=== PATIENT | female | born 1985 | race Caucasian/White ===

== ENCOUNTER 2018-08-26 07:14 | Day surgery (SDC) | payer BC ==
[2018-08-21 11:04] LABS: HEMATOCRIT 41.8 % (36.0-47.0); HEMOGLOBIN 14.5 g/dL (12.0-15.5); MEAN CORPUSCULAR HGB CONC 34.8 g/dL (32.0-36.0); MEAN CORPUSCULAR VOLUME 92 fl (80-97); PLATELET COUNT 256 10^3/uL (150-450); RED BLOOD COUNT 4.55 10^6/uL (3.72-5.28); RED CELL DISTRIBUTION WIDTH 12.8 % (11.5-14.0); WHITE BLOOD COUNT 7.2 10^3/uL (4.0-10.5)
[2018-08-21 11:12] LABS: APPEARANCE,URINE SLIGHTLY-CLOUDY; BILIRUBIN,URINE NEGATIVE (NEGATIVE); COLOR,URINE YELLOW; GLUCOSE, URINE NEGATIVE (NEGATIVE); KETONES,URINE NEGATIVE (NEGATIVE); LEUKOCYTE ESTERASE,URINE NEGATIVE (NEGATIVE); NITRITE,URINE NEGATIVE (NEGATIVE); PROTEIN,URINE NEGATIVE (NEGATIVE); URINE SPECIFIC GRAVITY 1.026; UROBILINOGEN,URINE NEGATIVE mg/dL (<2.0)
[2018-08-21 11:35] LABS: ALANINE AMINOTRANSFERASE 9 U/L (9-52); ALBUMIN 4.7 g/dL (3.5-5.0); ALKALINE PHOSPHATASE 56 U/L (38-126); ANION GAP 10 (5-19); ASPARTATE AMINO TRANSFERASE 17 U/L (14-36); BILIRUBIN,DIRECT 0.2 mg/dL (0.0-0.4); BILIRUBIN,TOTAL 0.7 mg/dL (0.2-1.3); BLOOD UREA NITROGEN 11 mg/dL (7-20); CALCIUM 9.9 mg/dL (8.4-10.2); CARBON DIOXIDE 24 mmol/L (22-30); CHLORIDE 107 mmol/L (98-107); GLUCOSE 89 mg/dL (75-110); POTASSIUM 4.3 mmol/L (3.6-5.0); SODIUM 141.1 mmol/L (137-145); TOTAL PROTEIN 7.7 g/dL (6.3-8.2)
[~2018-08-26 07:14] MED LIST: ACETAMINOPHEN 1,000 MG/100 ML RTUPB IV ONE; FENTANYL CITRATE INJ/PF 100 MCG/2 ML AMPUL ONE; GENTAMICIN SULFATE 80 MG in DEXTROSE 5%-WATER 100 ML IV PRN; LACTATED RINGERS 1000 ML IV PRN; LIDOCAINE 0.5% INJ-PF (5 MG/ML) 50 ML SDV SUBCUT PRN; LIDOCAINE 2% INJ-PF (100 MG/5 ML) SYRINGE ONE; MIDAZOLAM 2 MG/2 ML INJ ONE; PROPOFOL INJ 200 MG/20 ML VIAL IV ONE
[2018-08-26] MEDS ORDERED: LIDOCAINE 1%/EPINEPHRINE INJ 20 ML VIAL ONE (09:09)
[2018-08-26] MEDS ORDERED: FENTANYL CITRATE INJ/PF 100 MCG/2 ML AMPUL IV PRN ×3 (09:32)
[2018-08-26] MEDS ORDERED: ONDANSETRON HCL INJ/PF 4 MG/2 ML SDV IV PRN (09:32)
[2018-08-26] MEDS ORDERED: DIPHENHYDRAMINE HCL 50 MG/ML VIAL IV PRN (09:32)
[2018-08-26] MEDS ORDERED: PROMETHAZINE HCL INJ 25 MG/1 ML VIAL IV PRN ×2 (09:32)
[2018-08-26] MEDS ORDERED: MEPERIDINE HCL/PF INJ 25 MG/1 ML DISP.SYRIN IV PRN (09:32)
[2018-08-26] MEDS ORDERED: MORPHINE SULFATE 10 MG/ML INJ IV PRN (09:32)
--- NOTE | 2018-08-26 10:40 | OPERATIVE REPORT E ---
Operative Report NAME: VERONICA DICKEY : 1985 AGE: 32Y DATE OF SURGERY: 08/26/2018 ROOM: PREOPERATIVE DIAGNOSIS: Redundant labia minora bilaterally and right labia minora cyst. POSTOPERATIVE DIAGNOSIS: Redundant labia minora bilaterally and right labia minora cyst. OPERATION: Pelvic under anesthesia and excision of right labial cyst as well as excision of redundant labia minora bilaterally. SURGEON: JANIYA BURDICK M.D. ANESTHESIA: General and 1% Xylocaine with epinephrine. ESTIMATED BLOOD LOSS: 10 to 15 mL. PERTINENT HISTORY AND OPERATIVE FINDINGS: This is a 32-year-old female who was noted to have redundant bilateral labia minora as well as a right labia minora cyst. After hearing the risks and benefits and various options, she opted to proceed with an in-hospital outpatient excision of bilateral redundant labia minora as well as excision of right labia minora cyst. At the time of surgery she did have redundant bilateral labia minora as well as a small 1 cm right posterior labia minora cyst. The vagina appeared to be normal. The cervix and uterus was normal. Uterus was anterior, normal size and shape. Adnexa were negative. OPERATIVE PROCEDURE: The patient was brought into the OR, placed on the table in a supine position. She was inducted under general anesthesia. She was then repositioned in dorsal lithotomy, prepped and draped in sterile fashion. The bladder was emptied of approximately 50 mL of clear yellow urine. A pelvic under anesthesia was performed with the redundant labia, right labial cyst, normal vagina, normal cervix, anterior normal sized uterus, and adnexa that palpated normal. Gloves were changed and then we did make markings across the redundant labia minora on both sides. Then, turning attention to the right labia, the shotted curved Nydia was placed across the redundant area and pressed down for pressure. It was then injected with 1% Xylocaine with epinephrine. The redundant tissue and the cyst were then sharply dissected out with the #15 blade. The curved Nydia shot was then released. There was minor oozing. We went ahead and secured the labia top and bottom and then we did a subcuticular using 3-0 Prolene. The Prolene slid easily. After we had finished this the Prolene was tied on both the upper and lower edges and the 0 chromic that were used for retention purposes was removed. The exact same procedure was then carried out on the other side, with the exception that there was no cyst to remove on the left side labia minora. We then inspected it. There was no evidence of active bleeding. This terminated the procedure. The patient had the anesthesia discontinued. She was placed back in the supine position and transferred to the recovery room in satisfactory condition. Once again, estimated blood loss was 15 to 20 mL. She tolerated the procedure well. DICTATING PHYSICIAN: JANIYA BURDICK M.D. [id number] PHY#: [id number] ID: [id number] JOB#: [id number] ACCT: [id number] cc:JANIYA BURDICK M.D. >
[2018-08-26 11:42] VITALS: BP 126/88
== END 2018-08-26 11:48 | disposition home or self-care (01) ==
LOC: OROUT 07:14
PROVIDERS: ATTEND Obstetrics & Gynecology
DX: N90.7 Vulvar cyst (principal)
CPT/HCPCS: 36415; 85027; 81025; 80053; 81001; 88305 ×2; 56620; J2250; J3010; J1580; J3490; J2001; J2704; J0131; 940; J7060

== ENCOUNTER 2019-12-14 17:11 | Outpatient (CLI) | payer BC ==
[2019-12-14 17:48] LABS: APPEARANCE,URINE CLEAR; BILIRUBIN,URINE NEGATIVE (NEGATIVE); COLOR,URINE COLORLESS; GLUCOSE, URINE NEGATIVE (NEGATIVE); KETONES,URINE 20 mg/dL (NEGATIVE); LEUKOCYTE ESTERASE,URINE NEGATIVE (NEGATIVE); NITRITE,URINE NEGATIVE (NEGATIVE); PROTEIN,URINE NEGATIVE (NEGATIVE); URINE SPECIFIC GRAVITY 1.001; UROBILINOGEN,URINE NEGATIVE mg/dL (<2.0)
[2019-12-14 18:13] LABS: URINE AMPHETAMINES SCREEN NEGATIVE; URINE BARBITURATES SCREEN NEGATIVE; URINE BENZODIAZEPINES SCREEN NEGATIVE; URINE COCAINE SCREEN NEGATIVE; URINE MARIJUANA (THC) SCREEN NEGATIVE; URINE METHADONE SCREEN NEGATIVE; URINE PHENCYCLIDINE SCREEN NEGATIVE
[2019-12-14 18:18] LABS: UR PRO/CREAT RATIO RESULT 0.9 mg/mg (0.0-0.2); URINE CREATININE 14.9 mg/dL (16-327); URINE PROTEIN 13.8 mg/dL (<12)
[2019-12-14 18:42] LABS: HEMATOCRIT 28.9 % (36.0-47.0); MEAN CORPUSCULAR HEMOGLOBIN 30.8 pg (27.0-33.4); MEAN CORPUSCULAR HGB CONC 34.5 g/dL (32.0-36.0); MEAN CORPUSCULAR VOLUME 89 fl (80-97); PLATELET COUNT 169 10^3/uL (150-450); RED BLOOD COUNT 3.24 10^6/uL (3.72-5.28); RED CELL DISTRIBUTION WIDTH 13.9 % (11.5-14.0); WHITE BLOOD COUNT 7.8 10^3/uL (4.0-10.5)
--- NOTE | 2019-12-14 18:48 | Non Stress Test Report ---
Non Stress Test Datetime Report Generated by CPN: 12/14/2019 18:48 VITAL SIGNS Temperature - NST: 98.0 Pulse - NST: 68 RESP - NST: 16 NBPSYS NST: 128 NBPDIA NST: 69 MONITORING Monitor Explained: Monitor Explained; Test Explained; Patient Verbalized Understanding Time on Monitor: 12/14/2019 17:24 Time off Monitor: 12/14/2019 18:16 NST Duration: 52 NST INTERVENTIONS NST Interventions: PO Hydration; Reposition Patient Physician Notified NST: Dr. Saman BABY A: [id number] BABY A Movement : Present Contraction Frequency : irregular FHR Baseline : 135 Accelerations : 15X15 Decelerations : None Variability : Moderate 6-25bpm NST Review: Meets Criteria for Reactive NST NST Review and Verified By : RobertNiebuhr,RN NST Results: Reactive NST REPORT Report Trigger: Send Report
[2019-12-14 18:57] LABS: ALBUMIN 3.3 g/dL (3.5-5.0); ALKALINE PHOSPHATASE 156 U/L (38-126); ANION GAP 6 (5-19); ASPARTATE AMINO TRANSFERASE 21 U/L (14-36); BILIRUBIN,TOTAL 0.5 mg/dL (0.2-1.3); BLOOD UREA NITROGEN 3 mg/dL (7-20); CALCIUM 8.8 mg/dL (8.4-10.2); CARBON DIOXIDE 22 mmol/L (22-30); CHLORIDE 109 mmol/L (98-107); GLUCOSE 77 mg/dL (75-110); POTASSIUM 3.7 mmol/L (3.6-5.0); TOTAL PROTEIN 6.1 g/dL (6.3-8.2); URIC ACID 5.3 mg/dL (2.5-6.2)
== END 2019-12-14 19:25 | disposition home or self-care (01) ==
LOC: LC 17:11
PROVIDERS: ATTEND Obstetrics & Gynecology
DX: O14.93 Unspecified pre-eclampsia, third trimester (principal); Z3A.36 36 weeks gestation of pregnancy
CPT/HCPCS: 36415; 59025; 80053; 80307; 81001; 82570; 83615; 84156; 84550; 85027; 87077; 87081

== ENCOUNTER 2019-12-17 16:56 | Outpatient (CLI) | payer BC ==
[2019-12-17] MEDS ORDERED: DEXTROSE 5%-WATER 1000 ML 1,000 ML IV PRN (17:59)
[2019-12-17 18:10] LABS: APPEARANCE,URINE SLIGHTLY-CLOUDY; BILIRUBIN,URINE NEGATIVE (NEGATIVE); COLOR,URINE YELLOW; GLUCOSE, URINE NEGATIVE (NEGATIVE); KETONES,URINE NEGATIVE (NEGATIVE); LEUKOCYTE ESTERASE,URINE NEGATIVE (NEGATIVE); NITRITE,URINE NEGATIVE (NEGATIVE); PROTEIN,URINE NEGATIVE (NEGATIVE); UROBILINOGEN,URINE NEGATIVE mg/dL (<2.0)
[2019-12-17 18:30] LABS: URINE AMPHETAMINES SCREEN NEGATIVE; URINE BARBITURATES SCREEN NEGATIVE; URINE BENZODIAZEPINES SCREEN NEGATIVE; URINE COCAINE SCREEN NEGATIVE; URINE MARIJUANA (THC) SCREEN NEGATIVE; URINE METHADONE SCREEN NEGATIVE; URINE PHENCYCLIDINE SCREEN NEGATIVE
[2019-12-17 18:31] LABS: 24 HOUR URINE PROTEIN RESULT 404 mg/day (42-225); URINE PROTEIN 15.8 mg/dL (<12)
[2019-12-17 19:43] LABS: ABSOLUTE EOSINOPHILS # (AUTO) 0.2 10^3/uL (0.0-0.6); ABSOLUTE LYMPHOCYTES (AUTO) 1.6 10^3/uL (0.5-4.7); ABSOLUTE MONOCYTES (AUTO) 0.5 10^3/uL (0.1-1.4); ABSOLUTE NEUT (AUTO) 5.6 10^3/uL (1.7-8.2); BASOPHILS % (AUTO) 0.5 % (0-2); EOSINOPHILS % (AUTO) 2.2 % (0-6); HEMATOCRIT 28.1 % (36.0-47.0); HEMOGLOBIN 9.5 g/dL (12.0-15.5); LYMPHOCYTES % (AUTO) 20.2 % (13-45); MEAN CORPUSCULAR HEMOGLOBIN 30.2 pg (27.0-33.4); MEAN CORPUSCULAR HGB CONC 33.9 g/dL (32.0-36.0); MEAN CORPUSCULAR VOLUME 89 fl (80-97); MONOCYTES % (AUTO) 6.7 % (3-13); PLATELET COUNT 170 10^3/uL (150-450); RED BLOOD COUNT 3.16 10^6/uL (3.72-5.28); RED CELL DISTRIBUTION WIDTH 13.9 % (11.5-14.0); SEGMENTED NEUTROPHILS % (AUTO) 70.4 % (42-78); TOTAL CELLS COUNTED % (AUTO) 100 %
[2019-12-17 19:59] LABS: ALBUMIN 3.3 g/dL (3.5-5.0); ALKALINE PHOSPHATASE 141 U/L (38-126); ANION GAP 6 (5-19); ASPARTATE AMINO TRANSFERASE 18 U/L (14-36); BILIRUBIN,TOTAL 0.3 mg/dL (0.2-1.3); BLOOD UREA NITROGEN 5 mg/dL (7-20); CALCIUM 8.6 mg/dL (8.4-10.2); CARBON DIOXIDE 23 mmol/L (22-30); CHLORIDE 108 mmol/L (98-107); GLUCOSE 76 mg/dL (75-110); POTASSIUM 3.7 mmol/L (3.6-5.0); URIC ACID 5.5 mg/dL (2.5-6.2)
[2019-12-17] MEDS ORDERED: NIFEDIPINE 10 MG CAPSULE ONE (20:55)
[2019-12-17] MEDS ORDERED: NIFEDIPINE 10 MG CAPSULE PO ONE (20:56)
--- NOTE | 2019-12-17 22:30 | Non Stress Test Report ---
Non Stress Test Datetime Report Generated by CPN: 12/17/2019 22:29 DEMOGRAPHIC EGA NST: 36.6 INDICATION Indication for Study (NST) Other: PIH work up MONITORING Monitor Explained: Monitor Explained; Test Explained; Patient Verbalized Understanding Time on Monitor: 12/17/2019 17:58 Time off Monitor: 12/17/2019 19:39 NST Duration: 101 NST INTERVENTIONS NST Interventions: PO Hydration; Reposition Patient Physician Notified NST: Dr. Roper on unit, reviewed fht BABY A: [id number] BABY A Movement : Present Contraction Frequency : irregular FHR Baseline : 135 Accelerations : 15X15 Decelerations : None Variability : Moderate 6-25bpm NST Review: Meets Criteria for Reactive NST NST Review and Verified By : Wei Larson RN NST Results: Reactive NST REPORT Report Trigger: Send Report
== END 2019-12-17 22:26 | disposition home or self-care (01) ==
LOC: LC 16:56
PROVIDERS: ATTEND Obstetrics & Gynecology Gynecology
DX: O14.93 Unspecified pre-eclampsia, third trimester (principal); Z3A.36 36 weeks gestation of pregnancy
CPT/HCPCS: 36415; 83615; 84156; 84550; 85025; 80053; 81001; 80307; 59025; J3490

== ENCOUNTER 2019-12-20 17:48 | Inpatient (IN) | payer BC, MEDICAID ==
[2019-12-20] MEDS ORDERED: DINOPROSTONE 10 MG VAGINAL INSERT.SR PV PRN (17:57)
[2019-12-20] MEDS ORDERED: RINGERS SOLUTION,LACTATED 1,000 ML IV ONE (17:57)
[2019-12-20] MEDS ORDERED: OXYTOCIN 10 UNIT/ML VIAL ONE (18:32)
[2019-12-20] MEDS ORDERED: MISOPROSTOL 0.2 MG TABLET ONE (18:32)
[2019-12-20] MEDS ORDERED: DINOPROSTONE 10 MG VAGINAL INSERT.SR ONE (18:33)
[2019-12-20] MEDS ORDERED: OXYTOCIN/0.9 % SODIUM CHLORIDE 30 UNIT/500 ML RTUINJ ONE (18:33)
[2019-12-20] MEDS ORDERED: LIDOCAINE 1% INJ-PF (10 MG/ML) 30 ML SDV ONE (18:33)
[2019-12-20 19:25] LABS: ABSOLUTE EOSINOPHILS # (AUTO) 0.1 10^3/uL (0.0-0.6); ABSOLUTE LYMPHOCYTES (AUTO) 1.7 10^3/uL (0.5-4.7); ABSOLUTE MONOCYTES (AUTO) 0.6 10^3/uL (0.1-1.4); ABSOLUTE NEUT (AUTO) 5.8 10^3/uL (1.7-8.2); BASOPHILS % (AUTO) 0.3 % (0-2); EOSINOPHILS % (AUTO) 1.5 % (0-6); HEMATOCRIT 28.9 % (36.0-47.0); HEMOGLOBIN 9.8 g/dL (12.0-15.5); LYMPHOCYTES % (AUTO) 20.4 % (13-45); MEAN CORPUSCULAR HEMOGLOBIN 29.7 pg (27.0-33.4); MEAN CORPUSCULAR HGB CONC 33.9 g/dL (32.0-36.0); MEAN CORPUSCULAR VOLUME 88 fl (80-97); MONOCYTES % (AUTO) 7.5 % (3-13); PLATELET COUNT 193 10^3/uL (150-450); SEGMENTED NEUTROPHILS % (AUTO) 70.3 % (42-78); TOTAL CELLS COUNTED % (AUTO) 100 %; WHITE BLOOD COUNT 8.2 10^3/uL (4.0-10.5)
[2019-12-20 19:32] LABS: APPEARANCE,URINE CLOUDY; BILIRUBIN,URINE NEGATIVE (NEGATIVE); COLOR,URINE YELLOW; GLUCOSE, URINE NEGATIVE (NEGATIVE); KETONES,URINE NEGATIVE (NEGATIVE); LEUKOCYTE ESTERASE,URINE MODERATE (NEGATIVE); NITRITE,URINE NEGATIVE (NEGATIVE); PROTEIN,URINE 30 mg/dL (NEGATIVE); URINE SPECIFIC GRAVITY 1.009
[2019-12-20 19:44] LABS: ALBUMIN 3.1 g/dL (3.5-5.0); ALKALINE PHOSPHATASE 158 U/L (38-126); ANION GAP 7 (5-19); ASPARTATE AMINO TRANSFERASE 19 U/L (14-36); BILIRUBIN,TOTAL 0.6 mg/dL (0.2-1.3); BLOOD UREA NITROGEN 3 mg/dL (7-20); CALCIUM 8.6 mg/dL (8.4-10.2); CARBON DIOXIDE 21 mmol/L (22-30); CHLORIDE 107 mmol/L (98-107); GLUCOSE 76 mg/dL (75-110); POTASSIUM 3.7 mmol/L (3.6-5.0); TOTAL PROTEIN 5.9 g/dL (6.3-8.2); URIC ACID 5.8 mg/dL (2.5-6.2)
[2019-12-20] MEDS ORDERED: MAGNESIUM HYDROXIDE SUSP 30 ML UDCUP PO ONE (19:50)
[2019-12-20] MEDS ORDERED: MAG HYDROX/AL HYDROX/SIMETH SUSP 30 ML UDCUP ONE (19:52)
[2019-12-20 19:55] LABS: URINE AMPHETAMINES SCREEN NEGATIVE; URINE BARBITURATES SCREEN NEGATIVE; URINE BENZODIAZEPINES SCREEN NEGATIVE; URINE COCAINE SCREEN NEGATIVE; URINE MARIJUANA (THC) SCREEN NEGATIVE; URINE METHADONE SCREEN NEGATIVE; URINE PHENCYCLIDINE SCREEN NEGATIVE
[2019-12-20] MEDS ORDERED: MAG HYDROX/AL HYDROX/SIMETH SUSP 30 ML UDCUP PO ONE (20:30)
--- NOTE | 2019-12-21 00:29 | Admission Physical ---
Datetime Report Generated by CPN: 12/21/2019 00:28 CURRENT ADMISSION Chief Complaint: Scheduled Induction of Labor Indication for Induction: PreEclampsia Admit Impression : Term, Intrauterine ; Induction of Labor Admit Plan: Admit to Unit; Initiate Labor Induction Protocol ALLERGIES Medication Allergies: Yes Medication Allergies: Penicillins (12/20/2019); prednisone/Psychosis (12/17/2019); clindamycin/SV/cant breath (12/17/2019); amoxicillin/IL/rash (12/17/2019) Latex: No Latex Allergies Food Allergies: none Environmental Allergies: none OBSTETRICAL HISTORY EDC: 01/08/2020 00:00 : 3 Para: 2 Term: 2 : 0 SAB: 0 IAB: 0 Ectopic: 0 Livin Cesareans: 0 VBACs: 0 Multiple Births: 0 Gestational Diabetes: No Rh Sensitization: No Incompetent Cervix: No DANO: No Infertility: No ART Treatment: No Uterine Anomaly: No IUGR: No Hx Previous C/S: No Macrosomia: No Hx Loss/Stillborn: No PIH: No Hx : No Placenta Previa/Abruption: No Depression/PP Depression: No PTL/PROM: No Post Hemorrhage: No Obstetrical History Comments: 2007 G2- 2009 G3- current SEE RECORDS Alcohol: No Marijuana : No Cocaine: No Other Illicit Drugs: No Cigarettes: Former Smoker. 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 Surgery: No Heart Disease: No Hosp/Surgery: No Autoimmune Disorder: No Anesthetic Complications: No Kidney Disease: No Abnormal Pap Smear: No Neuro/Epilepsy: No Psychiatric Disorders: No Other Medical Diseases: No Hepatitis/Liver Disease: No Significant Family History: No Varicosities/Phlebitis: No Trauma/Violence : No Thyroid Dysfunction: No INFECTIOUS HISTORY Gonorrhea: No Genital Herpes: No Chlamydia: No Tuberculosis: No Syphilis: No Hepatitis: No HIV/AIDS Exposure: No Rash or Viral Illness: No HPV: No PHYSICAL EXAM General: Normal HEENT: Normal Neurologic: Normal Thyroid: Normal Heart: Normal Lungs: Normal Breast: Normal Back: Normal Abdomen: Normal Genitourinary Exam: Normal Extremities: Normal DTRs: Normal Pelvic Type: Adequate Vital Signs: Reviewed; Within Normal Limits VAGINAL EXAM Dilatation: 0 Effacement: 0 Station: -3 MEMBRANES Pooling: Negative Membranes: Intact FETUS A EGA: 37.3 Monitoring: External US FHR- Baseline: 150 Variability: Moderate 6-25bpm Accelerations: 15X15 Decelerations: None FHR Category: Category I Estimated Weight (gm): 3400 Presentation: Vertex PLANS FOR LABOR AND DELIVERY Labor and Delivery: None Pain Management: Epidural Feeding Preference: Breast Benefit of Breast Feed Discussed: Yes Circumcision: N/A INFORMED CONSENT Signature: with User ID: [email or web address]
[2019-12-21] MEDS ORDERED: OXYTOCIN/0.9 % SODIUM CHLORIDE 30 UNIT/500 ML RTUINJ IV PRN (09:00)
--- NOTE | 2019-12-21 09:11 | L&D Progress Notes ---
PROGRESS NOTES Datetime Report Generated by CPN: 12/21/2019 09:10 PROGRESS NOTE Impression: Reassuring Heart Rate Procedures: Sterile Vag Exam Plan: Induction Plan Other: +GBS, Vancomycin. Start Pitocin Vital Signs : Reviewed Comment: G 3 P2 here overnight for IOL due to Pre-eclampsia. s/p Cervidil. Pt doing well, denies headache. +GBS w/ PCN allergy, will start Vancomycin. VE loose /-2, vtx. Will start Pitcoin. Pt plans an epidural when in active labor. Attending MD is Dr Cowan today VAGINAL EXAM Dilatation: 0 Effacement: 0 Station: -3 LAST VAGINAL EXAM-NURSING Nursing Exam Dilitation: 1.0 Nursing Exam Effacement: 50 Nursing Exam Station: -2 Nursing Exam Contractions: Patient reports not feeling contractions. MEMBRANES Pooling: Negative Membranes: Intact FETUS A FHR - Baseline: 140 Monitoring: External US Variability: Moderate 6-25bpm Accelerations: 15X15 Decelerations: None : 37.3 Estimated Weight (gm): 3400 Presentation: Vertex SIGNATURE SIGNATURE: [id number];14,[id number];13,[id number] Assignment: Beena Cowan MD Signature: with User ID: [email or web address] : with User ID: [email or web address]
[2019-12-21] MEDS: RINGERS SOLUTION,LACTATED 1,000 ML IV PRN ×2 (09:13→11:46)
[2019-12-21] MEDS: VANCOMYCIN HCL 1,000 MG in DEXTROSE 5%-WATER 250 ML IV SCH (10:11)
[2019-12-21] MEDS ORDERED: DIPHENHYDRAMINE HCL 50 MG/ML VIAL IV ONE (11:38)
[2019-12-21] MEDS ORDERED: DIPHENHYDRAMINE HCL 50 MG/ML VIAL ONE (11:39)
[2019-12-21 15:40] LABS: HEMATOCRIT 27.9 % (36.0-47.0); HEMOGLOBIN 9.6 g/dL (12.0-15.5); MEAN CORPUSCULAR HEMOGLOBIN 30.3 pg (27.0-33.4); MEAN CORPUSCULAR HGB CONC 34.4 g/dL (32.0-36.0); MEAN CORPUSCULAR VOLUME 88 fl (80-97); PLATELET COUNT 177 10^3/uL (150-450); RED BLOOD COUNT 3.17 10^6/uL (3.72-5.28); WHITE BLOOD COUNT 9.2 10^3/uL (4.0-10.5)
[2019-12-21] MEDS ORDERED: DINOPROSTONE 10 MG VAGINAL INSERT.SR PV PRN (19:00)
[2019-12-21] MEDS ORDERED: DINOPROSTONE 10 MG VAGINAL INSERT.SR ONE (19:10)
[2019-12-22] MEDS ORDERED: MISOPROSTOL 0.1 MG TABLET ONE (08:54)
[2019-12-22] MEDS ORDERED: MISOPROSTOL 0.1 MG TABLET PV ONE (09:03)
[2019-12-22] MEDS ORDERED: OXYTOCIN/0.9 % SODIUM CHLORIDE 30 UNIT/500 ML RTUINJ IV PRN (13:25)
[2019-12-22] MEDS: RINGERS SOLUTION,LACTATED 1,000 ML IV PRN (13:29)
[2019-12-22] MEDS: VANCOMYCIN HCL 1,000 MG in DEXTROSE 5%-WATER 250 ML IV SCH (13:36)
[2019-12-22] MEDS ORDERED: EPHEDRINE SULFATE INJ 50 MG/1 ML AMPULE ONE ×2 (14:59→21:36)
[2019-12-22] MEDS ORDERED: ROPIVACAINE HCL 0.2% INJ/PF (2 MG/ML) 20 ML SDV ONE ×2 (15:00→21:37)
[2019-12-22] MEDS ORDERED: FENTANYL/BUPIVACAINE/NS/PF 0 MCG/0 ML RTUINJ EPI ONE (15:00)
[2019-12-22] MEDS ORDERED: FENTANYL/BUPIVACAINE/NS/PF 300 MCG/150 ML RTUINJ EPI ONE (21:36)
[2019-12-22] MEDS ORDERED: MAG HYDROX/AL HYDROX/SIMETH SUSP 30 ML UDCUP ONE (22:05)
[2019-12-22] MEDS ORDERED: LABETALOL HCL 200 MG TABLET ONE (23:41)
[2019-12-23] MEDS ORDERED: BENZOCAINE/MENTHOL AEROSOL SPRAY 56 ML TOP PRN (00:14)
[2019-12-23] MEDS ORDERED: GLYCERIN/WITCH HAZEL LEAF 1 EACH MED..WIPE TP PRN (00:14)
[2019-12-23] MEDS ORDERED: NA PHOS,M-B/NA PHOS,DI-BA (ADULT) 133 ML ENEMA PR PRN (00:14)
[2019-12-23] MEDS ORDERED: OXYTOCIN/0.9 % SODIUM CHLORIDE 30 UNIT/500 ML RTUINJ IV PRN (00:14)
[2019-12-23] MEDS ORDERED: PROMETHAZINE HCL INJ 25 MG/1 ML VIAL IV PRN (00:14)
[2019-12-23] MEDS ORDERED: ACETAMINOPHEN WITH CODEINE #3 TABLET PO PRN ×2 (00:14)
[2019-12-23] MEDS ORDERED: ZOLPIDEM TARTRATE 5 MG TABLET PO PRN (00:14)
[2019-12-23] MEDS ORDERED: DIPH/PERTUSS(ACELL)/TETANUS VAC/PF 0.5 ML SYR (>=10YO) IM PRN (00:14)
[2019-12-23] MEDS ORDERED: MAGNESIUM HYDROXIDE SUSP 30 ML UDCUP PO PRN (00:14)
[2019-12-23] MEDS ORDERED: PROMETHAZINE HCL 25 MG TABLET PO PRN (00:14)
[2019-12-23] MEDS ORDERED: PROMETHAZINE HCL 25 MG SUPP.RECT PR PRN (00:14)
[2019-12-23] MEDS ORDERED: PSEUDOEPHEDRINE HCL 30 MG TABLET PO PRN (00:14)
[2019-12-23] MEDS ORDERED: MEASLES,MUMPS&RUBELLA VACC/PF 0.5 ML VIAL SUBCUT PRN (00:14)
[2019-12-23] MEDS ORDERED: DIPHENHYDRAMINE HCL 25 MG CAPSULE PO PRN (00:14)
[2019-12-23] MEDS ORDERED: DIBUCAINE 1% OINTMENT 28 GM TP PRN (00:14)
[2019-12-23] MEDS ORDERED: ACETAMINOPHEN 650 MG SUPP.RECT PR PRN (00:14)
[2019-12-23] MEDS: LABETALOL HCL 200 MG TABLET PO SCH ×3 (00:49→21:47)
--- NOTE | 2019-12-23 01:56 | Delivery Summary ---
Del Sum A-C Datetime Report Generated by CPN: 12/23/2019 01:56 DELIVERY PERSONNEL DELIVERY PERSONNEL: [id number] Delivery Doctor:: Payal Lopez MD Labor and Delivery Nurse:: Patricia Larson RNall source intelligence Nurse:: Katharine Veronica RN Nursery Nurse:: Kristal Blake RN Physical Education Specialist/MOTORCYCLE SUBASSEMBLY REPAIRER: Amanda Marquez, SENIOR BUSINESS DEVELOPMENT MANAGER MATERNAL INFORMATION Delivery Anesthesia: Epidural Medications After Delivery: Pitocin 30 Units in 500ml NS/D5W Estimated Blood Loss (ml): 200 Delivery QBL: 200 Maternal Complications: None Provider Comments: Called to patients room as she was completely dilated with urge to push. Pushed through a few contractions and a viable female infant was delivered over an intact perineum. Baby vigorously crying. Cord clamping delayed 30 seconds. COrd then doubly clamped and cut. placed skin to skin with Mother. BOth and Mother stable. Uterus firm LABOR SUMMARY EDC: 01/08/2020 00:00 No. Babies in Womb: 1 Attempted: No Labor Anesthesia: Epidural LABOR INFORMATION Reason for Induction: Pre-Eclampsia Onset of Labor: 12/22/2019 22:46 Complete Dilatation: 12/22/2019 23:46 Cervical Ripening Agents: Cytotec @ 25 mcg given PV per John NEAL orders Oxytocin: Induction Group B Beta Strep: Positive Antibiotics # of Doses: 2 Antibiotics Time of Last Dose: 12/22/2019 13:36 Name of Antibiotic Given: Vancomycin Steroids Given: None Reason Steroids Not Administered: Not Applicable MEMBRANES Membranes Rupture Method: Artificial Rupture of Membranes: 12/22/2019 20:47 Length of Rupture (hr): 2.17 Amniotic Fluid Color: Clear Amniotic Fluid Amount: Small Amniotic Fluid Odor: Normal STAGES OF LABOR Stage 1 hr: 1 Stage 1 min: 0 Stage 2 hr: 0 Stage 2 min: -49 Stage 3 hr: 1 Stage 3 min: 3 Total Time in Labor hr: 1 Total Time in Labor min: 14 VAGINAL DELIVERY Episiotomy: None Laceration #1: None Laceration Extension #1: N/A Laceration Repair: Not Applicable Sponge Count Correct: Yes Sharps Count Correct: Yes CSECTION DELIVERY Primary Indication: N/A Secondary Indication: N/A CSection Incidence: N/A Labor: N/A Elective: N/A CSection Incision: N/A BABY A INFORMATION Infant Delivery Date/Time: 12/22/2019 22:57 Method of Delivery: Vaginal Nurse Controlled Delivery: No Born in Route : No : N/A Forceps: N/A Vacuum Extraction: N/A Shoulder Dystocia : No PRESENTATION/POSITION BABY A Presentation: Cephalic Cephalic Presentation: Vertex Vertex Position: Left Occipital Anterior Breech Presentation: N/A PLACENTA INFORMATION BABY A Placenta Delivery Time : 12/23/2019 00:00 Placenta Method of Delivery: Spontaneous Placenta Status: Delivered SCORES BABY A Heart Rate 1 min: >100 bpm Resp Effort 1 min: Good Cry Reflex Irritability 1 min: Cough or Sneeze or Pulls Away Muscle Tone 1 min: Active Motion Color 1 min: Blue/Pale Resuscitation Effort 1 min: Tactile Stimulation SCORE 1 MIN: 8 Heart Rate 5 min: >100 bpm Resp Effort 5 min: Good Cry Reflex Irritability 5 min: Cough or Sneeze or Pulls Away Muscle Tone 5 min: Active Motion Color 5 min: Body Byers, Extremities Blue Resuscitation Effort 5 min: Tactile Stimulation SCORE 5 MIN: 9 INFORMATION BABY A Gestational Age at Delivery: 37.4 Gestational Status: Early Term- 37- 38.6 Weeks Infant Outcome : Liveborn Infant Condition : Stable Infant Sex: Female IDENTIFICATION BABY A Verification Date/Time: 12/23/2019 00:27 ID Band Number: [id number] Mother's Name Verified: Yes RN Verifying Infant: E. Marsha RN. K. Jeremías RN WEIGHT/LENGTH BABY A Infant Birthweight (gm): 3798 Infant Weight (lb): 8 Weight (oz): 6 Length (in): 20.00 Infant Length (cm): 50.80 CORD INFORMATION BABY A No. Cord Vessels: 3 Nuchal Cord : N/A Cord Blood Taken: Yes-For Eval (Mom's Blood Type - or O+) Infant Suction: Mouth; Nose ASSESSMENT BABY A Infant Complications: None Physical Findings at Delivery: Within Normal Limits Respirations: Appears Normal Skin to Skin: Yes Project Architect/ALS Called : No Transferred To: Remains with Mother BABY B INFORMATION : N/A SIGNATURES Signature: with User ID: [email or web address] : with User ID: [email or web address]
--- NOTE | 2019-12-23 01:56 | Birth Certificate Data ---
Cert Data Datetime Report Generated by CPN: 12/23/2019 01:56 CERTIFICATE DATA 47a. Care: Yes (12/14/2019 18:26:Katharine Veronica RN) 47b. Date of First Visit: 07/15/2019 00:00 (12/14/2019 18:26:Nafisa Field RN) 47c. Date of Last Visit: 12/17/2019 00:00 (12/14/2019 18:26:Nafisa Field RN) 48a. Number of Prev Live Births: 2 (12/14/2019 18:26:Yvrose Dent RN) 48b. Now Livin (12/14/2019 18:26:Jenni Spears RN) 48c. Live Births Now : 0 (12/14/2019 18:26:QS system process) 48e. Losses: 0 (12/14/2019 18:26:Yvrose Dent RN) RISK FACTORS IN THIS 49a. Diabetes: No (12/14/2019 18:26:Lucinda Berger RN) 49b. Hypertension: No (12/14/2019 18:26:Lucinda Berger RN) Type of Hypertension: Gestational (PIH, Pre-eclampsia) (12/14/2019 18:26:Lucinda Berger RN) 49c. Previous Births: 0 (12/14/2019 18:26:Jneni Spears RN) 49d. Stillborns: No (12/14/2019 18:26:Lucinda Berger RN) 49d. IUGR: No (12/14/2019 18:26:Lucinda Berger RN) 49e. Infertility Treatment: No (12/14/2019 18:26:Lucinda Berger RN) 49f. Previous Cesareans: 0 (12/14/2019 18:26:Yvrose Dent RN) Mother's Height 50b. Height Inches: 69 (12/22/2019 06:57:QS system process) Mother's Weight 51a. Pre- Weight (lbs): 168 (12/14/2019 18:26:Katharine Veronica RN) 51b. Weight at Delivery (lbs): 200 (12/22/2019 06:57:QS system process) 52. Dt Last Normal Menses Began: 04/09/2020 00:00 (12/14/2019 18:26:Nafisa Field RN) Infections Present/Treated 53a. Gonorrhea: No (12/14/2019 18:26:Lucinda Berger RN) Results this Hospital Visit : Negative (12/14/2019 18:26:Jenni Spears RN) 53b. Syphilis: No (12/14/2019 18:26:Lucinda Berger RN) Results this Hospital Visit: NONREACTIVE (12/20/2019 19:10:QS system process) 53c. Chlamydia: No (12/14/2019 18:26:Lucinda Berger RN) Results this Hospital Visit: Negative (12/14/2019 18:26:Jenni Spears RN) 53d. Hepatitis B: No (12/14/2019 18:26:Lucinda Berger RN) Results this Hospital Visit: Negative (12/14/2019 18:26:Jenni Spears RN) 53e. Hepatitis C: Negative (12/14/2019 18:26:Yvrose Dent RN) 53h. Mother Tested for HBsAG: Yes (12/14/2019 18:26:Katharine Veronica RN) 53i. Date Tested: 08/25/2019 00:00 (12/14/2019 18:26:Yvrose Dent RN) 53j. Test Result: Negative (12/14/2019 18:26:Jenni Spears RN) Cigarette Smoking 55a. 3 Months Before Preg - Ci (12/14/2019 18:26:Nafisa Field RN) 55b. 1st Trimester of Preg- Ci (12/14/2019 18:26:Nafisa Field RN) 55c. 2nd Trimester of Preg- Ci (12/14/2019 18:26:Nafisa Field RN) 55d. 3rd Trimester of Preg- Ci (12/14/2019 18:26:Nafisa Field RN) Onset of Labor 56a. PROM >12 Hrs: 2.17 (12/14/2019 18:26:QS system process) 56b. Precipitous Labor <3 Hrs: 1 (12/14/2019 18:26:QS system process) 56c. Prolonged Labor > 20 Hrs: 1 (12/14/2019 18:26:QS system process) 57a. Induction of Labor: Induction (12/14/2019 18:26:Katharine Veronica RN) 57a. Induction of Labor: Cytotec @ 25 mcg given PV per John NEAL orders (12/22/2019 09:03:Nafisa Field RN) 57c. Non-Vertex Presentation A: Vertex (12/14/2019 18:26:Katharine Veronica RN) 57d. Steroids - Lung Mat: None (12/14/2019 18:26:Payal Lopez MD) 57d. Steroids - Lung Mat: Not Applicable (12/14/2019 18:26:Payal Lopez MD) 57e. Antibiotics During Labor: 12/22/2019 13:36 (12/14/2019 18:26:Katharine Veronica RN) 57f. Mat Ch[place] or Temp >100.4: 98.7 (12/14/2019 18:26:Katharine Veronica RN) 57g. Moderate/Heavy Meconium: Clear (12/22/2019 20:47:Patricia Larson RN) 57h. Intolerance of Labor: N/A (12/14/2019 18::Katharine Veronica RN) : N/A (12/14/2019 18:26:Katharine Veronica RN) 57i. Epidural/Spinal Anesthesia: Epidural (12/14/2019 18:26:Katharine Veronica RN) Method of Delivery 58a. Forceps - Unsuccessful A: N/A (12/14/2019 18:26:Katharine Veronica RN) 58b. Vacuum - Unsuccessful A: N/A (12/14/2019 18:26:Katharine Veronica RN) 58c. Presentation at 58c. Presentation at - A : Vertex (12/14/2019 18:26:Katharine Veronica RN) 58c. Presentation at - A : N/A (12/14/2019 18:26:Katharine Veronica RN) 58c. Presentation at - A : Cephalic (12/22/2019 22:46:Particia Larson RN) Final Route and Method of Del 58d. Baby A Route/Delivery: Vaginal (12/22/2019 23:57:Katharine Veronica RN) 58e. Trial of Labor Attempted: No (12/14/2019 18:26:Katharine Veronica RN) 58e. Trial of Labor Attempted A: N/A (12/14/2019 18:26:Katharine Veronica RN) 58e. Trial of Labor Attempted B: N/A (12/14/2019 18:26:Katharine Veronica RN) Maternal Morbidity 59b. 3rd or 4th Degree Lacs: None (12/14/2019 18:26:Payal Lopez, MD) Birthweight Baby A: 3798 (12/14/2019 18:26:Patricia Larson RN) 60a. Pounds : 8 (12/14/2019 18:26:QS system process) 60b. Ounces: 6 (12/14/2019 18:26:QS system process) 61. GA at Delivery Baby A: 37.4 (12/14/2019 18:26:Katharine Veronica RN) : Early Term- 37- 38.6 Weeks (12/14/2019 18:26:QS system process) 62a. 5 Minute Baby A: 9 (12/14/2019 18:26:QS system process)
[2019-12-23] MEDS ORDERED: EPHEDRINE SULFATE INJ 50 MG/1 ML AMPULE ONE (02:06)
[2019-12-23] MEDS ORDERED: MISOPROSTOL 0.2 MG TABLET ONE (02:09)
[2019-12-23] MEDS ORDERED: OXYTOCIN/0.9 % SODIUM CHLORIDE 30 UNIT/500 ML RTUINJ ONE (02:53)
[2019-12-23] MEDS ORDERED: METHYLERGONOVINE MALEATE 0.2 MG TABLET ONE ×3 (03:48→17:32)
[2019-12-23] MEDS: METHYLERGONOVINE MALEATE 0.2 MG TABLET PO SCH ×4 (03:50→21:48)
[2019-12-23] MEDS ORDERED: FUROSEMIDE INJ/PF 20 MG/2 ML SDV IV ONE (04:19)
[2019-12-23] MEDS ORDERED: HYDRALAZINE HCL INJ/PF 20 MG/1 ML SDV IV ONE (04:20)
[2019-12-23] MEDS ORDERED: FUROSEMIDE INJ/PF 40 MG/4 ML SDV ONE (04:21)
[2019-12-23] MEDS ORDERED: HYDRALAZINE HCL INJ/PF 20 MG/1 ML SDV ONE (04:21)
[2019-12-23] MEDS: FERROUS SULFATE 325 MG TABLET PO SCH ×3 (04:34→17:40)
[2019-12-23] MEDS: IBUPROFEN 800 MG TABLET PO SCH ×4 (04:34→22:24)
[2019-12-23] MEDS: PRENATAL VITAMIN W DHA CAPSULE PO SCH (10:03)
[2019-12-23] MEDS: FAMOTIDINE 20 MG TABLET PO SCH ×2 (10:03→22:23)
[2019-12-23] MEDS: SENNOSIDES/DOCUSATE 8.6-50 MG 1 EACH TABLET PO SCH (10:03)
[2019-12-23] MEDS: DOCUSATE SODIUM 100 MG CAPSULE PO SCH ×2 (10:03→17:40)
--- NOTE | 2019-12-23 11:39 | PDOC PROGRESS REPORT ---
Subjective-OB Progress Note for:: 12/23/19 Subjective: 34yo G3 now P3 s/p ppd1. Pt is ambulating and voiding without difficulty. Reports pain well controlled with medication, denies any concerns at this time. Denies any s/s of pre-e. Physical Exam (OB) Vital Signs: Temp Pulse Resp BP Pulse Ox 98.4 F 78 16 140/88 H 99 12/23/19 11:20 12/23/19 11:20 12/23/19 11:20 12/23/19 11:20 12/23/19 11:20 Intake & Output 12/22/19 12/23/19 12/24/19 06:59 06:59 06:59 Intake Total 784 Output Total 550 Balance 784 -550 - General General Appearance: Appears well In distress: None - PIH/Pre-Eclampsia DTR's: 1 + Clonus: Negative Headache: Absent Epigastric Pain: No Visual Changes: No - Maternal Morbidity 59. Maternal Morbidity (serious complications experinced by the mother associat ed with labor and delivery: None of the above - Episiotomy/Laceration Site Condition: N/A - Lochia Lochia Amount: Small 10-25 ml Lochia Color: Rubra/Red - Abdomen Description: Soft Hernia Present: No Fundal Description: Firm, Midline Fundal Height: u/u - u/2 - Respiratory Respiratory Status: No respiratory distress - Extremities Upper extremity: Normal inspection Lower extremities: Normal inspection - Neurological Cognition: Normal Orientation: AAOx4 - Psychological Associated symptoms: Normal affect Objective-Diagnostic Laboratory: 12/21/19 15:00 12/20/19 19:10 Assessment and Plan(PN) - Assessment and Plan (1) Vaginal delivery Is this a current diagnosis for this admission?: Yes Plan: routine pp care (2) Anemia complicating , third trimester Is this a current diagnosis for this admission?: Yes Plan: increase dietary iron and FeSO4 BID (3) Pre-eclampsia during in third trimester, antepartum Is this a current diagnosis for this admission?: Yes Plan: continue to monitor for s/s of post pre-e, started on labetalol last night,mild bps since then, continue at this time - Time Spent with Patient Time with patient: Less than 15 minutes Medications reviewed and adjusted accordingly: Yes - Disposition Anticipated Discharge Disposition: Home, Self Care Anticipated Discharge Timeframe: within 24 hours
[2019-12-24] MEDS: METHYLERGONOVINE MALEATE 0.2 MG TABLET PO SCH ×2 (04:08→11:08)
[2019-12-24] MEDS: IBUPROFEN 800 MG TABLET PO SCH ×4 (06:47→22:25)
[2019-12-24 06:49] LABS: HEMATOCRIT 26.9 % (36.0-47.0); HEMOGLOBIN 9.2 g/dL (12.0-15.5); MEAN CORPUSCULAR HEMOGLOBIN 29.7 pg (27.0-33.4); MEAN CORPUSCULAR HGB CONC 34.3 g/dL (32.0-36.0); MEAN CORPUSCULAR VOLUME 87 fl (80-97); PLATELET COUNT 144 10^3/uL (150-450); RED BLOOD COUNT 3.11 10^6/uL (3.72-5.28); RED CELL DISTRIBUTION WIDTH 14.2 % (11.5-14.0); WHITE BLOOD COUNT 8.4 10^3/uL (4.0-10.5)
--- NOTE | 2019-12-24 09:46 | PDOC PROGRESS REPORT ---
Subjective-OB Progress Note for:: 12/24/19 Subjective: Doing well, baby under bili lights, , feels tired, bleeding under control Physical Exam (OB) Vital Signs: Temp Pulse Resp BP Pulse Ox 97.6 F 68 16 146/89 H 99 12/24/19 07:47 12/24/19 07:47 12/24/19 07:47 12/24/19 07:47 12/24/19 07:47 Intake & Output 12/23/19 12/24/19 12/25/19 06:59 06:59 06:59 Intake Total 600 Output Total 550 Balance -550 600 - PIH/Pre-Eclampsia DTR's: 1 + Clonus: Negative Headache: Absent Epigastric Pain: No Visual Changes: No - Maternal Morbidity 59. Maternal Morbidity (serious complications experinced by the mother associated with labor and delivery: None of the above - Lochia Lochia Amount: Scant < 10 ml Lochia Color: Rubra/Red - Abdomen Description: Soft Hernia Present: No Fundal Description: Firm, Midline Fundal Height: u/u - u/2 Objective-Diagnostic Laboratory: 12/24/19 06:24 12/20/19 19:10 12/24/19 12/24/19 06:24 06:24 WBC 8.4 RBC 3.11 L Hgb 9.2 L Hct 26.9 L MCV 87 MCH 29.7 MCHC 34.3 RDW 14.2 H Plt Count 144 L Blood Type A NEGATIVE Assessment and Plan(PN) - Assessment and Plan (1) GBS (group B Streptococcus carrier), +RV culture, currently Is this a current diagnosis for this admission?: Yes (2) Vaginal delivery Is this a current diagnosis for this admission?: Yes (3) Anemia complicating , third trimester Is this a current diagnosis for this admission?: Yes (4) Pre-eclampsia during in third trimester, antepartum Is this a current diagnosis for this admission?: Yes - Time Spent with Patient Medications reviewed and adjusted accordingly: Yes - Disposition Anticipated Discharge Disposition: Home, Self Care Anticipated Discharge Timeframe: within 24 hours
[2019-12-24] MEDS: PRENATAL VITAMIN W DHA CAPSULE PO SCH (11:12)
[2019-12-24] MEDS: FAMOTIDINE 20 MG TABLET PO SCH ×3 (11:12→22:26)
[2019-12-24] MEDS: FERROUS SULFATE 325 MG TABLET PO SCH ×2 (11:13→17:27)
[2019-12-24] MEDS: DOCUSATE SODIUM 100 MG CAPSULE PO SCH ×2 (11:13→17:27)
[2019-12-24] MEDS: LABETALOL HCL 200 MG TABLET PO SCH ×2 (11:14→22:23)
[2019-12-24] MEDS: SENNOSIDES/DOCUSATE 8.6-50 MG 1 EACH TABLET PO SCH (11:15)
[2019-12-25] MEDS: IBUPROFEN 800 MG TABLET PO SCH (06:46)
[2019-12-25] MEDS: LABETALOL HCL 200 MG TABLET PO SCH (11:10)
[2019-12-25] MEDS: FAMOTIDINE 20 MG TABLET PO SCH (11:10)
[2019-12-25] MEDS: FERROUS SULFATE 325 MG TABLET PO SCH (11:10)
[2019-12-25] MEDS: DOCUSATE SODIUM 100 MG CAPSULE PO SCH (11:11)
[2019-12-25] MEDS: PRENATAL VITAMIN W DHA CAPSULE PO SCH (11:11)
[2019-12-25] MEDS: SENNOSIDES/DOCUSATE 8.6-50 MG 1 EACH TABLET PO SCH (11:11)
--- NOTE | 2019-12-25 11:56 | PDOC DISCHARGE SUMMARY ---
Impression - Admit/DC Date/PCP Admission Date/Primary Care Provider: 12/20/19 17:48 JANIYA BURDICK MD Discharge Date: 12/25/19 - Discharge Diagnosis (1) GBS (group B Streptococcus carrier), +RV culture, currently Is this a current diagnosis for this admission?: Yes (2) Pre-eclampsia during in third trimester, antepartum Is this a current diagnosis for this admission?: Yes (3) Vaginal delivery Is this a current diagnosis for this admission?: Yes - Additional Information Discharge Diet: Regular Discharge Activity: Balance Activity w/Rest, Pelvic Rest Referrals: JANIYA BURDICK MD [Primary Care Provider] - Prescriptions: Labetalol HCl [Normodyne 200 mg Tablet] 100 mg PO Q12 #60 tablet Home Medications: Pnv No.95/Ferrous Fum/Folic AC [ Caplet] 1 tab PO DAILY 12/14/19 Labetalol HCl [Normodyne 200 mg Tablet] 100 mg PO Q12 #60 tablet 12/25/19 HPI Gestational Age: 37+3 Reason(s) for Admission: Induction of Labor, [facility] Procedures: NST Intrapartum Procedure(s): Spontaneous Vaginal Delivery Hospital Course 59. Maternal Morbidity (serious complications experinced by the mother associated with labor and delivery: None of the above Results Laboratory Results: WBC 8.4 10^3/uL (4.0-10.5) 12/24/19 06:24 RBC 3.11 10^6/uL (3.72-5.28) L 12/24/19 06:24 Hgb 9.2 g/dL (12.0-15.5) L 12/24/19 06:24 Hct 26.9 % (36.0-47.0) L 12/24/19 06:24 MCV 87 fl (80-97) 12/24/19 06:24 MCH 29.7 pg (27.0-33.4) 12/24/19 06:24 MCHC 34.3 g/dL (32.0-36.0) 12/24/19 06:24 RDW 14.2 % (11.5-14.0) H 12/24/19 06:24 Plt Count 144 10^3/uL (150-450) L 12/24/19 06:24 Lymph % (Auto) 20.4 % (13-45) 12/20/19 19:10 Walsh % (Auto) 7.5 % (3-13) 12/20/19 19:10 Eos % (Auto) 1.5 % (0-6) 12/20/19 19:10 Baso % (Auto) 0.3 % (0-2) 12/20/19 19:10 Absolute Neuts (auto) 5.8 10^3/uL (1.7-8.2) 12/20/19 19:10 Absolute Lymphs (auto) 1.7 10^3/uL (0.5-4.7) 12/20/19 19:10 Absolute Monos (auto) 0.6 10^3/uL (0.1-1.4) 12/20/19 19:10 Absolute Eos (auto) 0.1 10^3/uL (0.0-0.6) 12/20/19 19:10 Absolute Basos (auto) 0.0 10^3/uL (0.0-0.2) 12/20/19 19:10 Seg Neutrophils % 70.3 % (42-78) 12/20/19 19:10 Sodium 135.4 mmol/L (137-145) L 12/20/19 19:10 Potassium 3.7 mmol/L (3.6-5.0) 12/20/19 19:10 Chloride 107 mmol/L (98-107) 12/20/19 19:10 Carbon Dioxide 21 mmol/L (22-30) L 12/20/19 19:10 Anion Gap 7 (5-19) 12/20/19 19:10 BUN 3 mg/dL (7-20) L 12/20/19 19:10 Creatinine 0.50 mg/dL (0.52-1.25) L 12/20/19 19:10 Est GFR ( Amer) > 60 (>60) 12/20/19 19:10 Est GFR (MDRD) Non-Af > 60 (>60) 12/20/19 19:10 Glucose 76 mg/dL (75-110) 12/20/19 19:10 Uric Acid 5.8 mg/dL (2.5-6.2) 12/20/19 19:10 Calcium 8.6 mg/dL (8.4-10.2) 12/20/19 19:10 Total Bilirubin 0.6 mg/dL (0.2-1.3) 12/20/19 19:10 Direct Bilirubin 0.0 mg/dL (0.0-0.4) 12/20/19 19:10 Neonat Total Bilirubin Not Reportable 12/20/19 19:10 Neonat Direct Bilirubin Not Reportable 12/20/19 19:10 Neonat Indirect Bili Not Reportable 12/20/19 19:10 AST 19 U/L (14-36) 12/20/19 19:10 ALT 8 U/L (<35) 12/20/19 19:10 Alkaline Phosphatase 158 U/L (38-126) H 12/20/19 19:10 Lactate Dehydrogenase 96 U/L (120-246) L 12/20/19 19:10 Total Protein 5.9 g/dL (6.3-8.2) L 12/20/19 19:10 Albumin 3.1 g/dL (3.5-5.0) L 12/20/19 19:10 Urine Color YELLOW 12/20/19 19:10 Urine Appearance CLOUDY 12/20/19 19:10 Urine pH 6.0 (5.0-9.0) 12/20/19 19:10 Ur Specific [place] 1.009 12/20/19 19:10 Urine Protein 30 mg/dL (NEGATIVE) H 12/20/19 19:10 Urine Glucose (UA) NEGATIVE mg/dL (NEGATIVE) 12/20/19 19:10 Urine Ketones NEGATIVE mg/dL (NEGATIVE) 12/20/19 19:10 Urine Blood NEGATIVE (NEGATIVE) 12/20/19 19:10 Urine Nitrite NEGATIVE (NEGATIVE) 12/20/19 19:10 Urine Bilirubin NEGATIVE (NEGATIVE) 12/20/19 19:10 Urine Urobilinogen 4.0 mg/dL (<2.0) H 12/20/19 19:10 Ur Leukocyte Esterase MODERATE (NEGATIVE) H 12/20/19 19:10 Urine WBC (Auto) 9 /HPF 12/20/19 19:10 Urine RBC (Auto) 3 /HPF 12/20/19 19:10 U Hyaline Cast (Auto) 2 /LPF 12/20/19 19:10 Urine Bacteria (Auto) 3+ /HPF 12/20/19 19:10 Squamous Epi Cells Auto 28 /HPF 12/20/19 19:10 Urine Mucus (Auto) MOD /LPF 12/20/19 19:10 Urine Ascorbic Acid NEGATIVE (NEGATIVE) 12/20/19 19:10 Urine Opiates Screen NEGATIVE 12/20/19 19:10 Urine Methadone Screen NEGATIVE 12/20/19 19:10 Ur Barbiturates Screen NEGATIVE 12/20/19 19:10 Ur Phencyclidine Scrn NEGATIVE 12/20/19 19:10 Ur Amphetamines Screen NEGATIVE 12/20/19 19:10 U Benzodiazepines Scrn NEGATIVE 12/20/19 19:10 Urine Cocaine Screen NEGATIVE 12/20/19 19:10 U Marijuana (THC) Screen NEGATIVE 12/20/19 19:10 RPR NONREACTIVE (NONREACTIVE) 12/20/19 19:10 Blood Type A NEGATIVE 12/24/19 06:24 Antibody Screen Cancelled 12/24/19 06:24 Antibody Identification RHOGAM INDUCED ANTI-D 12/20/19 19:10 Screen NEGATIVE 12/24/19 06:24 Plan Plan of Treatment: follow up in one week at [facility] for blood pressure check
[2019-12-25 12:40] VITALS: BP 154/83
== END 2019-12-25 13:10 | disposition home or self-care (01) | DRG 807 ==
LOC: LR 17:48 → 2S 12-23 05:22
PROVIDERS: ADMIT Obstetrics & Gynecology; ATTEND Obstetrics & Gynecology
PROC: 10E0XZZ Delivery of Products of Conception, External Approach (ICD-10-PCS; principal; 2019-12-22)
PROC: 3E0234Z Introduction of Serum, Toxoid and Vaccine into Muscle, Percutaneous Approach (ICD-10-PCS; 2019-12-25)
DX: O14.94 Unspecified pre-eclampsia, complicating childbirth (principal); Z37.0 Single live birth; O99.824 Streptococcus B carrier state complicating childbirth; O99.02 Anemia complicating childbirth; D64.9 Anemia, unspecified; O26.893 Other specified pregnancy related conditions, third trimester; Z67.11 Type A blood, Rh negative; Z3A.37 37 weeks gestation of pregnancy
CPT/HCPCS: 1967; 36415; 80053; 80307; 81001; 83615; 84550; 85025; 85027; 85461; 86592; 86850; 86870; 86900; 86901; 94760; J0360; J1200; J1940; J2590; J2790; J2795; J3010; J3370; J3490; J7060